=== PATIENT | female | born 1935 | race Caucasian/White ===

== ENCOUNTER 2017-06-18 12:03 | Emergency (ER) | payer OTHER ==
[~2017-06-18] VITALS: Ht 146.1 cm; Wt 50.2 kg
[2017-06-18 12:08] VITALS: BP 171/76
== END 2017-06-18 13:47 | disposition home or self-care (01) ==
LOC: ED 13:41
DX: S06.0X0A Concussion without loss of consciousness, initial encounter (principal); S00.03XA Contusion of scalp, initial encounter; I10 Essential (primary) hypertension; W22.8XXA Striking against or struck by other objects, initial encounter; Y93.89 Activity, other specified; Y92.89 Other specified places as the place of occurrence of the external cause; Y99.8 Other external cause status
CPT/HCPCS: 70450; 72125; 99284

== ENCOUNTER 2017-11-15 15:04 | Emergency (ER) | payer OTHER ==
[~2017-11-15] VITALS: Ht 144.8 cm; Wt 50.9 kg
[2017-11-15 15:19] VITALS: BP 168/82
[2017-11-15] MEDS ORDERED: DIPH,PERTUSS(ACELL),TET VAC/PF 0.5 ML IM-VACC ONE ×2 (16:00→17:23)
[2017-11-15] MEDS ORDERED: ACETAMINOPHEN 325 MG TABLET ONE (18:56)
[2017-11-15] MEDS ORDERED: ACETAMINOPHEN 325 MG TABLET PO ONE (19:00)
== END 2017-11-15 20:00 | disposition home or self-care (01) ==
LOC: ED 19:54
DX: S02.2XXA Fracture of nasal bones, initial encounter for closed fracture (principal); I10 Essential (primary) hypertension; Z88.1 Allergy status to other antibiotic agents; W01.0XXA Fall on same level from slipping, tripping and stumbling without subsequent striking against object, initial encounter; Y93.89 Activity, other specified; Y99.8 Other external cause status; Y92.009 Unspecified place in unspecified non-institutional (private) residence as the place of occurrence of the external cause
CPT/HCPCS: 70450; 70486; 90471; 90715